=== PATIENT | female | born 1945 | race American Indian/Alaskan Native ===

== ENCOUNTER 2019-11-18 13:14 | Inpatient (IN) | payer MEDICARE ==
[2019-11-18] MEDS ORDERED: SODIUM CHLORIDE 0.9% 1000 ML 1,000 ML IV ONE (13:59)
[2019-11-18] MEDS ORDERED: KETOROLAC 30 MG/1 ML INJ IV ONE (13:59)
[2019-11-18] MEDS ORDERED: ONDANSETRON 4 MG/2 ML INJ IV ONE (13:59)
[2019-11-18 14:38] LABS: Basophils # (Auto) 0.1 K/mm3 (0.0-0.1); Basophils % (Auto) 0.5 % (0.0-1.8); Hematocrit 37.8 % (30.3-42.9); Hemoglobin 12.2 gm/dl (10.1-14.3); Lymphocytes # (Auto) 1.4 K/mm3 (1.2-5.4); Lymphocytes % (Auto) 9.5 % (13.4-35.0); Mean Corpuscular HGB Conc 32 % (30-34); Mean Corpuscular Volume 90 fl (79-97); Monocytes # (Auto) 1.3 K/mm3 (0.0-0.8); Monocytes % (Auto) 9.2 % (0.0-7.3); Platelet Count 195 K/mm3 (140-440); Red Blood Count 4.21 M/mm3 (3.65-5.03); Red Cell Distribution Width 13.8 % (13.2-15.2)
--- NOTE | 2019-11-18 15:27 | Cat Scan Report ---
CT head/brain wo con INDICATION / CLINICAL INFORMATION: 73 years Female; MAIN: headache AND ALL OVER BODY PAIN SINCE LAST NIGHT . TECHNIQUE: Routine CT head without contrast. All CT scans at this location are performed using CT dos e reduction for ALARA by means of automated exposure control. COMPARISON: None. FINDINGS: BRAIN / INTRACRANIAL CONTENTS: No acute hemorrhage, mass effect, midline shift, hydrocephalus, or acu te, large territorial infarct. Minimal cerebral atrophy. There are minimal areas of decreased attenuation in the white matter of the cerebral hemispheres. The se are nonspecific findings and may be related to microangiopathy (hypertension, diabetes, atheroscle rosis), given the patient's age. It might be difficult to evaluate for small areas of ischemia withou t diffusion imaging by MRI. CRANIOCERVICAL JUNCTION: No significant abnormality. ORBITS: No significant abnormality of visualized orbits. There may be scleral banding on the left. Pl ease clinically correlate. SINUSES / MASTOIDS: No significant abnormality the visualized paranasal sinuses or mastoid air cells. ADDITIONAL FINDINGS: No significant atherosclerotic disease appreciated. IMPRESSION: 1. No focal mass, hemorrhage, hydrocephalus, or acute, large territorial infarct. Signer Name: James Fernandez MD, III Signed: 11/18/2019 3:22 PM Workstation Name: [id number]
[2019-11-18] MEDS ORDERED: SODIUM CHLORIDE 0.9% IV ONE (16:03)
[2019-11-18] MEDS ORDERED: cefTRIAXone/NS 1 GM/50 ML 1 GM/50 ML BAG IV SCH (16:03)
[2019-11-18 16:07] LABS: Bilirubin,Urine NEG (Negative); Blood,Urine MOD (Negative); Color,Urine Yellow (Yellow); Mucus,Urine FEW /HPF; Urobilinogen,Urine < 2.0 mg/dL (<2.0)
--- NOTE | 2019-11-18 16:53 | Emergency Department Report ---
ED General Adult HPI - General Chief complaint: Urogenital-Female Stated complaint: HBP/HEADACHE/BODY PAIN Time Seen by Provider: 11/18/19 13:52 Source: family, EMS Mode of arrival: Stretcher Limitations: Altered Mental Status, Physical Limitation - History of Present Illness Initial comments: Patient is a 73-year-old F M[place] female who is presenting with altered mental status. Patient's daughter states that the patient was at home for the last 2 days lying on the floor in her own urine. Patient apparently has not walked since yesterday either. Patient is had some weakness and is complaining of pain all over. Patient was seen approximately a week ago for urinary tract infection and only took half of her medications. After the patient declined patient was taken to another hospital last night and was given some IV fluids but released with another prescription for antibiotics. Is unknown with the urinalysis showed at that time. Patient is presenting here complaining of left-sided headache and some left-sided neck pain. Patient also states she has some low back pain as well. Patient is no unable to give a proper timeline of the last several days. Severity scale (0 -10): 8 Quality: aching Consistency: constant - Related Data Allergies Allergy/AdvReac Type Severity Reaction Status Date / Time No Known Allergies Allergy Unverified 11/18/19 14:07 ED Review of Systems ROS: Stated complaint: HBP/HEADACHE/BODY PAIN Other details as noted in HPI Comment: All other systems reviewed and negative ED Past Medical Hx - Past Medical History Hx Hypertension: Yes Hx Diabetes: Yes Additional medical history: sciatica - Surgical History Additional Surgical History: eye, hysterectomy - Social History Smoking Status: Former Smoker Substance Use Type: Alcohol ED Physical Exam - General Limitations: Altered Mental Status, Physical Limitation General appearance: alert, in distress, other (On initial assessment patient is wrapped in multiple blankets stating that she hurts all over.) - Head Head exam: Present: atraumatic, normocephalic - Eye Eye exam: Present: normal appearance, PERRL, EOMI - ENT ENT exam: Present: mucous membranes moist - Neck Neck exam: Present: normal inspection, tenderness (left lateral neck). Absent: meningismus - Respiratory Respiratory exam: Present: normal lung sounds bilaterally. Absent: respiratory distress, wheezes, rales, rhonchi - Cardiovascular Cardiovascular Exam: Present: regular rate, normal rhythm, normal heart sounds. Absent: systolic murmur, diastolic murmur, rubs, gallop - GI/Abdominal GI/Abdominal exam: Present: soft, normal bowel sounds. Absent: distended, tenderness, guarding, rebound - Extremities Exam Extremities exam: Present: normal inspection - Back Exam Back exam: Present: normal inspection, paraspinal tenderness (lumbar) - Neurological Exam Neurological exam: Present: alert, oriented X3 - Psychiatric Psychiatric exam: Present: normal affect, normal mood - Skin Skin exam: Present: warm, dry, intact, normal color. Absent: rash ED Course Vital Signs 11/18/19 11/18/19 11/18/19 14:30 15:00 15:59 Temperature 97.8 F Pulse Rate 98 H 98 H 99 H Respiratory 26 H 21 26 H Rate Blood Pressure 156/76 160/91 158/70 [Left] O2 Sat by Pulse 95 96 95 Oximetry 11/18/19 16:02 Temperature Pulse Rate 99 H Respiratory 16 Rate Blood Pressure 136/70 [Left] O2 Sat by Pulse 93 Oximetry ED Medical Decision Making - Lab Data Result diagrams: 11/18/19 14:25 11/18/19 14:25 Lab Results 11/18/19 11/18/19 11/18/19 Range/Units 14:25 14:25 15:59 WBC 14.2 H (4.5-11.0) K/mm3 RBC 4.21 (3.65-5.03) M/mm3 Hgb 12.2 (10.1-14.3) gm/dl Hct 37.8 (30.3-42.9) % MCV 90 (79-97) fl MCH 29 (28-32) pg MCHC 32 (30-34) % RDW 13.8 (13.2-15.2) % Plt Count 195 (140-440) K/mm3 Lymph % (Auto) 9.5 L (13.4-35.0) % [place] % (Auto) 9.2 H (0.0-7.3) % Eos % (Auto) 0.0 (0.0-4.3) % Baso % (Auto) 0.5 (0.0-1.8) % Lymph # 1.4 (1.2-5.4) K/mm3 [place] # 1.3 H (0.0-0.8) K/mm3 Eos # 0.0 (0.0-0.4) K/mm3 Baso # 0.1 (0.0-0.1) K/mm3 Seg Neutrophils % 80.8 H (40.0-70.0) % Seg Neutrophils # 11.5 H (1.8-7.7) K/mm3 Sodium 132 L (137-145) mmol/L Potassium 5.4 H (3.6-5.0) mmol/L Chloride 94.4 L (98-107) mmol/L Carbon Dioxide 19 L (22-30) mmol/L Anion Gap 24 mmol/L BUN 11 (7-17) mg/dL Creatinine 1.0 (0.7-1.2) mg/dL Estimated GFR 55 ml/min BUN/Creatinine Ratio 11 % Glucose 348 H (65-100) mg/dL Lactic Acid (0.7-2.0) mmol/L Calcium 9.0 (8.4-10.2) mg/dL Urine Color Yellow (Yellow) Urine Turbidity Clear (Clear) Urine pH 5.0 (5.0-7.0) Ur Specific [place] 1.022 (1.003-1.030) Urine Protein 30 mg/dl (Negative) mg/dL Urine Glucose (UA) >=500 (Negative) mg/dL Urine Ketones 20 (Negative) mg/dL Urine Blood Mod (Negative) Urine Nitrite Neg (Negative) Urine Bilirubin Neg (Negative) Urine Urobilinogen < 2.0 (<2.0) mg/dL Ur Leukocyte Esterase Neg (Negative) Urine WBC (Auto) 3.0 (0.0-6.0) /HPF Urine RBC (Auto) 3.0 (0.0-6.0) /HPF U Epithel Cells (Auto) 1.0 (0-13.0) /HPF Urine Mucus Few /HPF 11/18/19 Range/Units 16:23 WBC (4.5-11.0) K/mm3 RBC (3.65-5.03) M/mm3 Hgb (10.1-14.3) gm/dl Hct (30.3-42.9) % MCV (79-97) fl MCH (28-32) pg MCHC (30-34) % RDW (13.2-15.2) % Plt Count (140-440) K/mm3 Lymph % (Auto) (13.4-35.0) % [place] % (Auto) (0.0-7.3) % Eos % (Auto) (0.0-4.3) % Baso % (Auto) (0.0-1.8) % Lymph # (1.2-5.4) K/mm3 [place] # (0.0-0.8) K/mm3 Eos # (0.0-0.4) K/mm3 Baso # (0.0-0.1) K/mm3 Seg Neutrophils % (40.0-70.0) % Seg Neutrophils # (1.8-7.7) K/mm3 Sodium (137-145) mmol/L Potassium (3.6-5.0) mmol/L Chloride (98-107) mmol/L Carbon Dioxide (22-30) mmol/L Anion Gap mmol/L BUN (7-17) mg/dL Creatinine (0.7-1.2) mg/dL Estimated GFR ml/min BUN/Creatinine Ratio % Glucose (65-100) mg/dL Lactic Acid 1.80 (0.7-2.0) mmol/L Calcium (8.4-10.2) mg/dL Urine Color (Yellow) Urine Turbidity (Clear) Urine pH (5.0-7.0) Ur Specific [place] (1.003-1.030) Urine Protein (Negative) mg/dL Urine Glucose (UA) (Negative) mg/dL Urine Ketones (Negative) mg/dL Urine Blood (Negative) Urine Nitrite (Negative) Urine Bilirubin (Negative) Urine Urobilinogen (<2.0) mg/dL Ur Leukocyte Esterase (Negative) Urine WBC (Auto) (0.0-6.0) /HPF Urine RBC (Auto) (0.0-6.0) /HPF U Epithel Cells (Auto) (0-13.0) /HPF Urine Mucus /HPF - Radiology Data CT head/brain wo con INDICATION / CLINICAL INFORMATION: 73 years Female; MAIN: headache AND ALL OVER BODY PAIN SINCE LAST NIGHT . TECHNIQUE: Routine CT head without contrast. All CT scans at this location are performed using CT dose reduction for ALARA by means of automated exposure control. COMPARISON: None. FINDINGS: BRAIN / INTRACRANIAL CONTENTS: No acute hemorrhage, mass effect, midline shift, hydrocephalus, or acute, large territorial infarct. Minimal cerebral atrophy. There are minimal areas of decreased attenuation in the white matter of the cerebral hemispheres. These are nonspecific findings and may be related to microangiopathy (hypertension, diabetes, atherosclerosis), given the patient's age. It might be difficult to evaluate for small areas of ischemia without diff usion imaging by MRI. CRANIOCERVICAL JUNCTION: No significant abnormality. ORBITS: No significant abnormality of visualized orbits. There may be scleral banding on the left. Please clinically correlate. SINUSES / MASTOIDS: No significant abnormality the visualized paranasal sinuses or mastoid air cells. ADDITIONAL FINDINGS: No significant atherosclerotic disease appreciated. IMPRESSION: 1. No focal mass, hemorrhage, hydrocephalus, or acute, large territorial infarct. Signer Name: James Fernandez MD, III Signed: 11/18/2019 2:22 PM Workstation Name: [id number] - Medical Decision Making Patient is a 73-year-old F [place] female who is presenting with some abnormal behavior for the last several days. Patient is recently been treated for UTI. There was assumption that the patient likely was encephalopathic from her UTI. Once the patient's white count returned patient sepsis protocol was initiated. The urine was the last thing to be collected. The urine actually was clear and not cloudy. There is very few WBCs or RBCs in the leuk esterase and nitrates were negative i.e. her urinary tract infection she had last week was improving. Patient does show evidence some dehydration. Patient is nonambulatory. Her pain was improved with Toradol she is no longer complaining of pain all over. There is a slight concern for rhabdomyolysis since the patient was lying on the floor overnight however the urine was not tea colored. CK has been ordered to rule rhabdomyolysis out completely. Because the patient is nonambulatory and having issues with dehydration patient will be admitted to the hospitalist service under observation status. Critical care attestation.: If time is entered above; I have spent that time in minutes in the direct care of this critically ill patient, excluding procedure time. ED Disposition Clinical Impression: Hyperkalemia, Hyponatremia, Dehydration, Chronic neuropathic pain, Hyperglycemia Altered mental state Qualifiers: Altered mental status type: unspecified Qualified Code(s): R41.82 - Altered mental status, unspecified Disposition: DC-09 OP ADMIT IP TO THIS HOSP Is pt being admited?: Yes Does the pt Need Aspirin: No Condition: Stable Time of Disposition: 17:00
[2019-11-18] MEDS ORDERED: SODIUM BICARB 8.4% 50 MEQ/50 ML SYRINGE IV ONE ×2 (16:59→20:12)
[2019-11-18] MEDS ORDERED: SODIUM CHLORIDE 0.9% 1000 ML 1,000 ML IV SCH (17:00)
--- NOTE | 2019-11-18 21:02 | History and Physical Report ---
History of Present Illness Date of examination: 11/18/19 Date of admission: 11/18/19 17:00 Chief complaint: Patient with AMS for 2days History of present illness: 73 y/o AAF with history of HTN and diabetes apparently doing well till 2 days ago was found on floor in urine.Patient was confused and altered during initial ED presentation.In the next one hour was back to baseline and coherent.Poorhistorian.Says she was taking care of herself till 2 days ago..Was treated for UTI inthe last one week.No dysuria or fever. Ary hernandez was taken to another hospital last night and was given some IV fluids but released with another prescription for antibiotics. Is unknown with the urinalysis showed at that time. Patient is presenting here complaining of left- sided headache and some left-sided neck pain. Patient also states she has some low back pain as well. Patient is not unable to give a proper timeline of the last several days. Past Medical History Hypertension: Yes Diabetes: Yes Additional medical history: sciatica Surgical History Additional Surgical History: eye, hysterectomy Social History Smoking Status: Former Smoker Substance Use Type: Alcohol Family History Htn Review of Systems ROS: Stated complaint: HBP/HEADACHE/BODY PAIN Other details as noted in HPI Comment: All other systems reviewed and negative Medications and Allergies Allergies Allergy/AdvReac Type Severity Reaction Status Date / Time No Known Allergies Allergy Unverified 11/18/19 14:07 Active Meds: Active Medications Ceftriaxone Sodium (Rocephin/Ns 1 Gm/50 Ml) 1 gm in 50 mls @ 100 mls/hr IV Q24HR KALINA; Protocol Stop: 11/20/19 10:29 Last Admin: 11/18/19 17:00 Dose: 100 mls/hr Documented by: Sodium Chloride (Nacl 0.9% 1000 Ml) 1,000 mls @ 125 mls/hr IV DIRECT KALINA Exam - Constitutional Vitals: Temp Pulse Resp BP Pulse Ox 97.8 F 104 H 18 140/90 95 11/18/19 15:59 11/18/19 20:45 11/18/19 20:45 11/18/19 20:45 11/18/19 20:45 General appearance: Present: no acute distress, well-nourished - EENT Eyes: Present: PERRL ENT: hearing intact, clear oral mucosa - Neck Neck: Present: supple, normal ROM - Respiratory Respiratory effort: normal Respiratory: bilateral: CTA - Cardiovascular Heart rate: 78 Rhythm: regular Heart Sounds: Present: S1 & S2. Absent: rub, click - Extremities Extremities: no ischemia, pulses intact, pulses symmetrical, No edema Peripheral Pulses: within normal limits - Abdominal General gastrointestinal: Present: soft, non-tender, non-distended, normal bowel sounds Female genitourinary: Present: normal - Rectal Rectal Exam: deferred - Integumentary Integumentary: Present: clear, warm, dry - Musculoskeletal Musculoskeletal: gait normal, strength equal bilaterally - Psychiatric Psychiatric: appropriate mood/affect, intact judgment & insight - Neurologic Neurologic: CNII-XII intact, moves all extremities - Allied Health Allied health notes reviewed: nursing, case management Results - Labs CBC & Chem 7: 11/19/19 05:08 11/18/19 14:25 Labs: Laboratory Last Values WBC 14.2 K/mm3 (4.5-11.0) H 11/18/19 14:25 RBC 4.21 M/mm3 (3.65-5.03) 11/18/19 14:25 Hgb 12.2 gm/dl (10.1-14.3) 11/18/19 14:25 Hct 37.8 % (30.3-42.9) 11/18/19 14:25 MCV 90 fl (79-97) 11/18/19 14:25 MCH 29 pg (28-32) 11/18/19 14:25 MCHC 32 % (30-34) 11/18/19 14:25 RDW 13.8 % (13.2-15.2) 11/18/19 14:25 Plt Count 195 K/mm3 (140-440) 11/18/19 14:25 Lymph % (Auto) 9.5 % (13.4-35.0) L 11/18/19 14:25 [place] % (Auto) 9.2 % (0.0-7.3) H 11/18/19 14:25 Eos % (Auto) 0.0 % (0.0-4.3) 11/18/19 14:25 Baso % (Auto) 0.5 % (0.0-1.8) 11/18/19 14:25 Lymph # 1.4 K/mm3 (1.2-5.4) 11/18/19 14:25 [place] # 1.3 K/mm3 (0.0-0.8) H 11/18/19 14:25 Eos # 0.0 K/mm3 (0.0-0.4) 11/18/19 14:25 Baso # 0.1 K/mm3 (0.0-0.1) 11/18/19 14:25 Seg Neutrophils % 80.8 % (40.0-70.0) H 11/18/19 14:25 Seg Neutrophils # 11.5 K/mm3 (1.8-7.7) H 11/18/19 14:25 Sodium 132 mmol/L (137-145) L 11/18/19 14:25 Potassium 5.4 mmol/L (3.6-5.0) H 11/18/19 14:25 Chloride 94.4 mmol/L (98-107) L 11/18/19 14:25 Carbon Dioxide 19 mmol/L (22-30) L 11/18/19 14:25 Anion Gap 24 mmol/L 11/18/19 14:25 BUN 11 mg/dL (7-17) 11/18/19 14:25 Creatinine 1.0 mg/dL (0.7-1.2) 11/18/19 14:25 Estimated GFR 55 ml/min 11/18/19 14:25 BUN/Creatinine Ratio 11 % 11/18/19 14:25 Glucose 348 mg/dL (65-100) H 11/18/19 14:25 Lactic Acid 1.80 mmol/L (0.7-2.0) 11/18/19 18:57 Calcium 9.0 mg/dL (8.4-10.2) 11/18/19 14:25 Total Creatine Kinase 2231 units/L (30-135) H 11/18/19 17:02 Urine Color Yellow (Yellow) 11/18/19 15:59 Urine Turbidity Clear (Clear) 11/18/19 15:59 Urine pH 5.0 (5.0-7.0) 11/18/19 15:59 Ur Specific [place] 1.022 (1.003-1.030) 11/18/19 15:59 Urine Protein 30 mg/dl mg/dL (Negative) 11/18/19 15:59 Urine Glucose (UA) >=500 mg/dL (Negative) 11/18/19 15:59 Urine Ketones 20 mg/dL (Negative) 11/18/19 15:59 Urine Blood Mod (Negative) 11/18/19 15:59 Urine Nitrite Neg (Negative) 11/18/19 15:59 Urine Bilirubin Neg (Negative) 11/18/19 15:59 Urine Urobilinogen < 2.0 mg/dL (<2.0) 11/18/19 15:59 Ur Leukocyte Esterase Neg (Negative) 11/18/19 15:59 Urine WBC (Auto) 3.0 /HPF (0.0-6.0) 11/18/19 15:59 Urine RBC (Auto) 3.0 /HPF (0.0-6.0) 11/18/19 15:59 U Epithel Cells (Auto) 1.0 /HPF (0-13.0) 11/18/19 15:59 Urine Mucus Few /HPF 11/18/19 15:59 Short CBC 11/18/19 11/19/19 Range/Units 14:25 05:08 WBC 14.2 H 11.6 H (4.5-11.0) K/mm3 Hgb 12.2 10.6 (10.1-14.3) gm/dl Hct 37.8 32.4 (30.3-42.9) % Plt Count 195 208 (140-440) K/mm3 BMP 11/18/19 14:25 Sodium 132 L Potassium 5.4 H Chloride 94.4 L Carbon Dioxide 19 L BUN 11 Creatinine 1.0 Glucose 348 H Calcium 9.0 Cardiac Enzymes 11/18/19 Range/Units 17:02 Total Creatine Kinase 2231 H (30-135) units/L Urine 11/18/19 Range/Units 15:59 Urine Color Yellow (Yellow) Urine pH 5.0 (5.0-7.0) Ur Specific [place] 1.022 (1.003-1.030) Urine Protein 30 mg/dl (Negative) mg/dL Urine Glucose (UA) >=500 (Negative) mg/dL - Imaging and Cardiology EKG: report reviewed CT Scan - head: report reviewed (NAF) Assessment and Plan Advance Directives: Yes (Ful code) VTE prophylaxis?: Chemical Plan of care discussed with patient/family: Yes - Patient Problems (1) Acute encephalopathy Current Visit: Yes Status: Acute Plan to address problem: Resolving No signs of Infection U/A negative Hypoglycemia episode Near baseline mentation IV Fluids for now Empiric IV Rocephin (2) Rhabdomyolysis Current Visit: Yes Status: Acute Qualifiers: Encounter type: initial encounter Plan to address problem: Patient was lying on floor for some time IV fluids for (3) IDDM (insulin dependent diabetes mellitus) Current Visit: Yes Status: Chronic Plan to address problem: Uncontrolled A1c 9.7 Novolog mix initiated Accucheks and coverage (4) HTN (hypertension) Current Visit: Yes Status: Chronic Qualifiers: Hypertension type: essential hypertension Qualified Code(s): I10 - Essential (primary) hypertension Plan to address problem: Cont antihypertensives (5) Hyperkalemia Current Visit: Yes Status: Acute Plan to address problem: Treated (6) DVT prophylaxis Current Visit: Yes Status: Acute Plan to address problem: On Heparin and GI prophylaxis
[2019-11-18] MEDS ORDERED: ONDANSETRON 4 MG/2 ML INJ IV PRN (21:03)
[2019-11-18] MEDS: FAMOTIDINE 20 MG/2 ML INJ IV SCH (22:27)
[2019-11-19] MEDS: SODIUM CHLORIDE 0.9% 1000 ML 1,000 ML IV SCH ×3 (04:36→19:39)
[2019-11-19 06:05] LABS: Basophils # (Auto) 0.1 K/mm3 (0.0-0.1); Basophils % (Auto) 0.6 % (0.0-1.8); Eosinophils # (Auto) 0.1 K/mm3 (0.0-0.4); Eosinophils % (Auto) 0.6 % (0.0-4.3); Hematocrit 32.4 % (30.3-42.9); Hemoglobin 10.6 gm/dl (10.1-14.3); Lymphocytes # (Auto) 1.8 K/mm3 (1.2-5.4); Lymphocytes % (Auto) 15.2 % (13.4-35.0); Mean Corpuscular HGB Conc 33 % (30-34); Mean Corpuscular Volume 89 fl (79-97); Monocytes # (Auto) 0.8 K/mm3 (0.0-0.8); Monocytes % (Auto) 7.2 % (0.0-7.3); Platelet Count 208 K/mm3 (140-440); Red Blood Count 3.62 M/mm3 (3.65-5.03); Red Cell Distribution Width 13.6 % (13.2-15.2)
[2019-11-19 07:13] LABS: Alanine Aminotransferase 13 units/L (7-56); Albumin 3.1 g/dL (3.9-5); BUN/Creatinine Ratio 14; Blood Urea Nitrogen 13 mg/dL (7-17); Calcium 8.4 mg/dL (8.4-10.2); Hemolysis Index 16
--- NOTE | 2019-11-19 09:05 | Progress Note ---
Assessment and Plan Assessment and plan: 73 y/o AAF with history of HTN and diabetes apparently doing well till 2 days ago was found on floor in urine.Patient was confused and altered during initial ED presentation.In the next one hour was back to baseline and coherent.Poor historian.Says she was taking care of herself till 2 days ago..Was treated for UTI in the last one week. No dysuria or fever. Patient was taken to another hospital last night and was given some IV fluids but released with another prescription for antibiotics. Is unknown with the urinalysis showed at that time. Patient is presenting here complaining of left- sided headache and some left-sided neck pain. Patient also states she has some low back pain as well. Patient is not unable to give a proper timeline of the last several days. Per daughter patient was found on the floor at home in pool of urine and altered Patient was active with complete of ADL up to a few days ago She came off a relationship in the Last few months and may be depressed, the daughter is also requesting Rebecca-psych eval She has been complaining of generalized body pain Her blood sugar has been persistently elevated she was recently treated in [facility] ED for ACUTE PYELONEPHRITIS AND NON COMPLIANCE WITH MEDICATIONS ALSO LEUKOCYTOSIS. She had presented there with headache and generalized body aches and leg pain On evaluation today, she is in no acute distress. Mental status is improved but she does not remember much about the last 2 days and does not know the names of medicines she takes. she is very lethargic and unable to move without assistance She has some edema with the leg. she has persistent Tachycardia She was to have an appointment with Carola Riggs MD neurologist outpatient prior to being readmitted. (1) Acute encephalopathy Current Visit: Yes Status: Acute Plan to address problem: Resolving Will obtain MRI OF HEAD, Neurology consulted PT OT PATIENT IS A HIGH FALL RISK- SHE HAD A FALL 2 MONTHS AGO NEUROLOGY CONSULT ECHO FOR THE HEART CONSIDERING ALL THE PAIN POINTS, FIBROMYALGIA IS IN THE DIFFERENTIALS, will start on Cymbalta CONSIDER LUMBER PUNCTURE CONSIDERING AMENTIA VS CONTUSION U/A negative Hypoglycemia episode Near baseline mentation IV Fluids for now Empiric IV Rocephin (2) Rhabdomyolysis Current Visit: Yes Status: Acute Qualifiers: Encounter type: initial encounter Plan to address problem: Patient was lying on floor for some time IV fluids for Rhabdomyolysis (3) IDDM (insulin dependent diabetes mellitus) Current Visit: Yes Status: Chronic Plan to address problem: Uncontrolled A1c 9.7 Novolog mix initiated Accucheks and coverage (4) HTN (hypertension) Current Visit: Yes Status: Chronic Qualifiers: Hypertension type: essential hypertension Qualified Code(s): I10 - Essential (primary) hypertension Plan to address problem: Cont antihypertensives (5) Hyperkalemia Current Visit: Yes Status: Acute Plan to address problem: Treated (6) DVT prophylaxis Current Visit: Yes Status: Acute Plan to address problem: On Heparin and GI prophylaxis History Interval history: Patient seen and examined, remains with Delirium and Periods of clarity. She has generalized weakness and not moving despite normally being able to walk Hospitalist Physical - Constitutional Vitals: Temp Pulse Resp BP Pulse Ox 100.3 F H 101 H 18 165/77 92 11/19/19 07:22 11/19/19 07:22 11/19/19 07:22 11/19/19 07:22 11/19/19 07:22 General appearance: Present: mild distress, well-nourished, obese, other (lethargic) - EENT Eyes: Present: PERRL, EOM intact. Absent: scleral icterus, conjunctival injection ENT: hearing intact, clear oral mucosa, dentition normal - Neck Neck: Present: supple - Respiratory Respiratory effort: normal Respiratory: bilateral: CTA - Cardiovascular Rhythm: regular Heart Sounds: Present: S1 & S2. Absent: systolic murmur, diastolic murmur - Extremities Extremities: no ischemia, pulses intact, pulses symmetrical, normal temperature, normal color, Full ROM Extremity abnormal: edema (trace bilatral lower ext edema) Peripheral Pulses: within normal limits - Abdominal General gastrointestinal: soft, non-tender, non-distended, normal bowel sounds - Integumentary Integumentary: Present: clear, warm, dry. Absent: erythema - Psychiatric Psychiatric: appropriate mood/affect, other (intermittent periods of confusion) - Allied Health Allied health notes reviewed: nursing Results - Labs CBC & Chem 7: 11/19/19 05:08 11/19/19 05:08 Labs: Laboratory Last Values WBC 11.6 K/mm3 (4.5-11.0) H 11/19/19 05:08 RBC 3.62 M/mm3 (3.65-5.03) L 11/19/19 05:08 Hgb 10.6 gm/dl (10.1-14.3) 11/19/19 05:08 Hct 32.4 % (30.3-42.9) 11/19/19 05:08 MCV 89 fl (79-97) 11/19/19 05:08 MCH 29 pg (28-32) 11/19/19 05:08 MCHC 33 % (30-34) 11/19/19 05:08 RDW 13.6 % (13.2-15.2) 11/19/19 05:08 Plt Count 208 K/mm3 (140-440) 11/19/19 05:08 Lymph % (Auto) 15.2 % (13.4-35.0) 11/19/19 05:08 Frontier % (Auto) 7.2 % (0.0-7.3) 11/19/19 05:08 Eos % (Auto) 0.6 % (0.0-4.3) 11/19/19 05:08 Baso % (Auto) 0.6 % (0.0-1.8) 11/19/19 05:08 Lymph # 1.8 K/mm3 (1.2-5.4) 11/19/19 05:08 Frontier # 0.8 K/mm3 (0.0-0.8) 11/19/19 05:08 Eos # 0.1 K/mm3 (0.0-0.4) 11/19/19 05:08 Baso # 0.1 K/mm3 (0.0-0.1) 11/19/19 05:08 Seg Neutrophils % 76.4 % (40.0-70.0) H 11/19/19 05:08 Seg Neutrophils # 8.8 K/mm3 (1.8-7.7) H 11/19/19 05:08 Sodium 140 mmol/L (137-145) D 11/19/19 05:08 Potassium 4.4 mmol/L (3.6-5.0) 11/19/19 05:08 Chloride 101.7 mmol/L (98-107) 11/19/19 05:08 Carbon Dioxide 24 mmol/L (22-30) 11/19/19 05:08 Anion Gap 19 mmol/L 11/19/19 05:08 BUN 13 mg/dL (7-17) 11/19/19 05:08 Creatinine 0.9 mg/dL (0.7-1.2) 11/19/19 05:08 Estimated GFR > 60 ml/min 11/19/19 05:08 BUN/Creatinine Ratio 14 % 11/19/19 05:08 Glucose 238 mg/dL (65-100) H 11/19/19 05:08 POC Glucose 255 (70-105) H 11/19/19 08:21 Hemoglobin A1c 9.7 % (4-6) H 11/18/19 14:25 Lactic Acid 1.80 mmol/L (0.7-2.0) 11/18/19 18:57 Calcium 8.4 mg/dL (8.4-10.2) 11/19/19 05:08 Total Bilirubin 0.30 mg/dL (0.1-1.2) 11/19/19 05:08 AST 22 units/L (5-40) 11/19/19 05:08 ALT 13 units/L (7-56) 11/19/19 05:08 Alkaline Phosphatase 69 units/L (35-129) 11/19/19 05:08 Total Creatine Kinase 2231 units/L (30-135) H 11/18/19 17:02 Total Protein 7.1 g/dL (6.3-8.2) 11/19/19 05:08 Albumin 3.1 g/dL (3.9-5) L 11/19/19 05:08 Albumin/Globulin Ratio 0.8 % 11/19/19 05:08 Urine Color Yellow (Yellow) 11/18/19 15:59 Urine Turbidity Clear (Clear) 11/18/19 15:59 Urine pH 5.0 (5.0-7.0) 11/18/19 15:59 Ur Specific [place] 1.022 (1.003-1.030) 11/18/19 15:59 Urine Protein 30 mg/dl mg/dL (Negative) 11/18/19 15:59 Urine Glucose (UA) >=500 mg/dL (Negative) 11/18/19 15:59 Urine Ketones 20 mg/dL (Negative) 11/18/19 15:59 Urine Blood Mod (Negative) 11/18/19 15:59 Urine Nitrite Neg (Negative) 11/18/19 15:59 Urine Bilirubin Neg (Negative) 11/18/19 15:59 Urine Urobilinogen < 2.0 mg/dL (<2.0) 11/18/19 15:59 Ur Leukocyte Esterase Neg (Negative) 11/18/19 15:59 Urine WBC (Auto) 3.0 /HPF (0.0-6.0) 11/18/19 15:59 Urine RBC (Auto) 3.0 /HPF (0.0-6.0) 11/18/19 15:59 U Epithel Cells (Auto) 1.0 /HPF (0-13.0) 11/18/19 15:59 Urine Mucus Few /HPF 11/18/19 15:59 Active Medications - Current Medications Current Medications: Generic Name Dose Route Start Last Admin Trade Name Freq PRN Reason Stop Dose Admin Acetaminophen 650 mg 11/18/19 21:03 Tylenol PO Q4H PRN Pain MILD(1-3)/Fever >100.5/ARVIZU Famotidine 20 mg 11/18/19 22:00 11/18/19 22:27 Pepcid IV 20 mg BID KALINA Administration Sodium Chloride 1,000 mls @ 75 mls/hr 11/18/19 21:15 11/19/19 04:36 Nacl 0.9% 1000 Ml IV 75 mls/hr DIRECT KALINA Administration Ceftriaxone Sodium 2 gm in 100 mls @ 200 mls/hr 11/19/19 10:00 Rocephin/Ns 2 Gm/100 Ml IV Q24HR KALINA Protocol Insulin Human Isoph/Insulin Regular 15 unit 11/19/19 09:00 Humulin 70/30 SUB-Q BIDDIAB KALINA Ondansetron HCl 4 mg 11/18/19 21:03 Zofran IV Q8H PRN Nausea And Vomiting Oxycodone/Acetaminophen 1 tab 11/18/19 21:03 Percocet 5/325 PO Q6H PRN Pain, Moderate (4-6) Sodium Chloride 10 ml 11/18/19 22:00 11/18/19 21:39 Sodium Chloride Flush Syringe 10 Ml IV 10 ml BID KALINA Administration Sodium Chloride 10 ml 11/18/19 21:03 Sodium Chloride Flush Syringe 10 Ml IV PRN PRN LINE FLUSH
[2019-11-19] MEDS ORDERED: DEXTROSE 50% IN WATER (25GM) 50 ML SYRINGE IV PRN (09:07)
[2019-11-19] MEDS: oxyCODONE /ACETAMINOPHEN 5-325MG TAB PO PRN ×2 (09:13→22:29)
[2019-11-19] MEDS: FAMOTIDINE 20 MG/2 ML INJ IV SCH ×2 (09:13→22:28)
[2019-11-19] MEDS: INSULIN NPH/REGULAR 70/30 INJ SUB-Q SCH ×2 (10:14→17:07)
[2019-11-19] MEDS: DULoxetine 20 MG CAP PO SCH (10:14)
[2019-11-19] MEDS: cefTRIAXone/NS 2 GM/100 ML 2 GM/100 ML BAG IV SCH (10:15)
[2019-11-19] MEDS: LISINOPRIL 20 MG TAB PO SCH (10:15)
[2019-11-19] MEDS: INSULIN LISPRO 100 UNIT/ML SUB-Q SCH ×3 (11:51→22:46)
[2019-11-19 12:09] LABS: Chol/HDL Ratio 4.04 %
--- NOTE | 2019-11-19 13:01 | Progress Note ---
Subjective Date of service: 10/22/19 Interval history: patient seen and she is very disoriented and confused appears to have aleteres mental state rule out stroke dementia full work up orered no focal neuro signs at this point. Objective - Vital Sign Vital Signs - 12hr 11/19/19 11/19/19 11/19/19 02:21 07:22 10:00 Temperature 99.5 F 100.3 F H Pulse Rate 91 H 101 H 101 H Respiratory 20 18 Rate Blood Pressure 165/76 165/77 O2 Sat by Pulse 96 92 Oximetry - Laboratory Findings CBC and BMP: 11/19/19 05:08 11/19/19 05:08 Abnormal Lab Findings: Abnormal Labs 11/18/19 11/18/19 11/18/19 14:25 14:25 14:25 WBC 14.2 H RBC Lymph % (Auto) 9.5 L Mcdowell % (Auto) 9.2 H Mcdowell # 1.3 H Seg Neutrophils % 80.8 H Seg Neutrophils # 11.5 H Sodium 132 L Potassium 5.4 H Chloride 94.4 L Carbon Dioxide 19 L Glucose 348 H POC Glucose Hemoglobin A1c 9.7 H Total Creatine Kinase Albumin 11/18/19 11/19/19 11/19/19 17:02 05:08 05:08 WBC 11.6 H RBC 3.62 L Lymph % (Auto) Mcdowell % (Auto) Mcdowell # Seg Neutrophils % 76.4 H Seg Neutrophils # 8.8 H Sodium Potassium Chloride Carbon Dioxide Glucose 238 H POC Glucose Hemoglobin A1c Total Creatine Kinase 2231 H Albumin 3.1 L 11/19/19 11/19/19 11/19/19 08:21 09:37 11:20 WBC RBC Lymph % (Auto) Mcdowell % (Auto) Mcdowell # Seg Neutrophils % Seg Neutrophils # Sodium Potassium Chloride Carbon Dioxide Glucose POC Glucose 255 H 261 H Hemoglobin A1c Total Creatine Kinase 1249 H Albumin
[2019-11-19] MEDS: GABAPENTIN 400 MG CAP PO SCH ×2 (14:33→22:28)
[2019-11-20] MEDS: oxyCODONE /ACETAMINOPHEN 5-325MG TAB PO PRN (04:03)
[2019-11-20 04:10] LABS: Hematocrit 32.3 % (30.3-42.9); Hemoglobin 10.6 gm/dl (10.1-14.3); Mean Corpuscular HGB Conc 33 % (30-34); Mean Corpuscular Volume 90 fl (79-97); Platelet Count 219 K/mm3 (140-440); Red Cell Distribution Width 13.6 % (13.2-15.2)
[2019-11-20 04:29] LABS: Albumin 2.5 g/dL (3.9-5); BUN/Creatinine Ratio 13; Blood Urea Nitrogen 9 mg/dL (7-17); Calcium 8.2 mg/dL (8.4-10.2); Hemolysis Index 128
[2019-11-20 04:59] LABS: Alanine Aminotransferase 16 units/L (7-56)
[2019-11-20] MEDS: INSULIN NPH/REGULAR 70/30 INJ SUB-Q SCH ×2 (08:30→18:19)
[2019-11-20] MEDS: INSULIN LISPRO 100 UNIT/ML SUB-Q SCH ×4 (08:30→22:42)
[2019-11-20] MEDS: FAMOTIDINE 20 MG/2 ML INJ IV SCH ×3 (09:28→21:16)
[2019-11-20] MEDS: GABAPENTIN 400 MG CAP PO SCH ×3 (09:28→20:20)
[2019-11-20] MEDS: DULoxetine 20 MG CAP PO SCH (09:28)
[2019-11-20] MEDS: cefTRIAXone/NS 2 GM/100 ML 2 GM/100 ML BAG IV SCH (09:28)
[2019-11-20] MEDS: LISINOPRIL 20 MG TAB PO SCH (09:28)
--- NOTE | 2019-11-20 09:40 | Progress Note ---
Subjective Date of service: 11/20/19 Interval history: spoke to Dr. Valle this am and went over her CT which shows atrophy suspect delirium vs dementia not stroke paln MRI thursday Objective - Vital Sign Vital Signs - 12hr 11/19/19 11/19/19 11/19/19 22:25 22:29 23:29 Temperature Pulse Rate Respiratory 20 20 Rate Respiratory 20 Rate [Neck] Blood Pressure O2 Sat by Pulse Oximetry 11/20/19 11/20/19 11/20/19 02:12 03:07 04:03 Temperature 97.7 F Pulse Rate 81 Respiratory 22 20 Rate Respiratory Rate [Neck] Blood Pressure 130/77 O2 Sat by Pulse 97 Oximetry 11/20/19 11/20/19 05:03 07:14 Temperature 98.1 F Pulse Rate 83 Respiratory 20 20 Rate Respiratory Rate [Neck] Blood Pressure 174/89 O2 Sat by Pulse 96 Oximetry - Laboratory Findings CBC and BMP: 11/20/19 03:25 11/20/19 03:25 Abnormal Lab Findings: Abnormal Labs 11/18/19 11/18/19 11/18/19 14:25 14:25 14:25 WBC 14.2 H RBC Lymph % (Auto) 9.5 L [place] % (Auto) 9.2 H [place] # 1.3 H Seg Neutrophils % 80.8 H Seg Neutrophils # 11.5 H Sodium 132 L Potassium 5.4 H Chloride 94.4 L Carbon Dioxide 19 L Glucose 348 H POC Glucose Hemoglobin A1c 9.7 H Calcium Total Creatine Kinase Albumin 11/18/19 11/19/19 11/19/19 17:02 05:08 05:08 WBC 11.6 H RBC 3.62 L Lymph % (Auto) [place] % (Auto) [place] # Seg Neutrophils % 76.4 H Seg Neutrophils # 8.8 H Sodium Potassium Chloride Carbon Dioxide Glucose 238 H POC Glucose Hemoglobin A1c Calcium Total Creatine Kinase 2231 H Albumin 3.1 L 11/19/19 11/19/19 11/19/19 08:21 09:37 11:20 WBC RBC Lymph % (Auto) [place] % (Auto) [place] # Seg Neutrophils % Seg Neutrophils # Sodium Potassium Chloride Carbon Dioxide Glucose POC Glucose 255 H 261 H Hemoglobin A1c Calcium Total Creatine Kinase 1249 H Albumin 11/19/19 11/19/19 11/20/19 16:41 21:44 03:25 WBC RBC 3.60 L Lymph % (Auto) [place] % (Auto) [place] # Seg Neutrophils % Seg Neutrophils # Sodium Potassium Chloride Carbon Dioxide Glucose POC Glucose 172 H 179 H Hemoglobin A1c Calcium Total Creatine Kinase Albumin 11/20/19 11/20/19 03:25 07:28 WBC RBC Lymph % (Auto) [place] % (Auto) [place] # Seg Neutrophils % Seg Neutrophils # Sodium 135 L Potassium Chloride Carbon Dioxide Glucose POC Glucose 160 H Hemoglobin A1c Calcium 8.2 L Total Creatine Kinase Albumin 2.5 L
--- NOTE | 2019-11-20 12:10 | Cat Scan Report ---
CT CERVICAL SPINE: 11/20/2019 INDICATION / CLINICAL INFORMATION: radiculopathy. Right-sided pain COMPARISON: None available. FINDINGS: CT images of the cervical spine were obtained. Images are evaluated in the axial, coronal, and sagitt al planes. There is no evidence of acute abnormality. There is a left convex scoliosis of the spine centered at the cervicothoracic junction. Disc space narrowing is present at all levels, associated with disc bulging at all levels. There is e vidence of foraminal narrowing, right greater than left, at the C4-5, C5-6, and C6-7 levels. Vertebral body height is well preserved. There is no evidence of fracture. LEVEL BY LEVEL ANALYSIS: . CRANIOCERVICAL JUNCTION: Unremarkable. PARASPINAL STRUCTURES: Unremarkable. IMPRESSION: Degenerative disc and facet changes. Mild scoliosis. No evidence of acute abnormality. Subtle abnormalities of neural foramina and spinal canal may be better assessed with the use of CT my elography or MRI. All CT scans at this location are performed using dose reduction to ALARA by means of automated expos ure control. Signer Name: Vasyl Max MD Signed: 11/20/2019 12:05 PM Workstation Name: [id number]
--- NOTE | 2019-11-20 14:14 | Consultation ---
History of Present Illness - Reason for Consult Consult date: 11/20/19 Reason for consult: psychiatric assessment - Chief Complaint Chief complaint: Patient with AMS for 2days - History of Present Psychiatric Illness Ms. Oro is a 73-year-old -British female the patient is in bed alert oriented x2 patient reason oriented to place. The patient is dressed appropriately for the occasion she is able to make her needs known she appears her age. She maintains intermittent eye contact. The patient stated that she has a history of depression but has never taken medication and does not want medication, she reports that her depression is under control. The patient denies suicidal or homicidal ideation she contracts for safety. She reports that she is sleeping okay and her eating habits are good. The patient denies visual or auditory hallucinations. The patient refused medication at this and states, " I am doing well". PAST PSYCHIATRIC HISTORY: Diagnoses: Depression Suicide attempts or Self-harm behavior: Denies Prior psychiatric hospitalizations: Denies Substance Abuse history: Denies Previous psychiatric medications tried: None Outpatient treatment: PAST MEDICAL HISTORY: Family Psychiatric History None reported or documented SOCIAL HISTORY Marital Status: Living Arrangements: Self Employment Status: Retired Access to guns/weapons: None Education: 12 History of Abuse: Denies Legal History: denies ROS: Constitutional: Negative for weight loss ENT: Negative for stridor Respiratory: Negative for cough or hemoptysis All other systems reviewed and are negative MENTAL STATUS General Appearance and Behavior: age appropriate, limited eye contact, cooperative with questioning and polite Cooperation: Cooperative Psychomotor Behavior: within normal limits Mood: OK Affect and affective range: Congruent with stated mood Thought Process: Fluent/Logical and Goal-directed Thought Content: Within reality Speech: Normal volume and Regular rate and rhythm Intellectual Functioning Average Suicidal Ideation: Denies SI Homicidal Ideation: Denies HI Impulse Control: intact Insight and Judgment: normal insight and judgment Memory: Normal Attention: Normal Orientation: alert and oriented RECOMMENDATIONS MEDICATIONS: Risks, benefits and alternatives of medications discussed with the patient, questions answered and consent obtained from patient. PSYCHOTHERAPY: Supportive psychotherapy provided MEDICAL: Per primary team DELIRIUM PRECAUTIONS: Please re-orient patient frequently, keep lights on during the day, and minimize benzodiazepines and opiates as these medications could worsen patient's confusion. 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: Per primary team; no indication for acute inpatient psychiatric hospitalization at this time, LEGAL STATUS: FOLLOW-UP: sign off Medications and Allergies Allergies Allergy/AdvReac Type Severity Reaction Status Date / Time No Known Allergies Allergy Unverified 11/18/19 14:07 Home Medications Medication Instructions Recorded Confirmed Last Taken Type Bromfenac Sodium [Prolensa] 1 drop OD DAILY 11/19/19 11/19/19 Unknown History Cyclobenzaprine [Flexeril] 10 mg PO BID PRN 11/19/19 11/19/19 Unknown History Difluprednate [Durezol 0.05%] 1 drop OU DAILY 11/19/19 11/19/19 Unknown History Dorzolamide/Timolol(Nf) 2-0.5% 1 drops OP BID 11/19/19 11/19/19 Unknown History [Cosopt (Nf)] Ibuprofen [Motrin] 800 mg PO Q8HR PRN 11/19/19 11/19/19 Unknown History Latanoprostene Bunod [Vyzulta] 1 drop OP HS 11/19/19 11/19/19 Unknown History Multivitamin [Multiple Vitamins] 1 each PO DAILY 11/19/19 11/19/19 Unknown History Netarsudil Mesylate [Rhopressa] 1 drop OS HS 11/19/19 11/19/19 Unknown History lisinopriL [Zestril] 20 mg PO QDAY 11/19/19 11/19/19 11/19/19 10:00 History metFORMIN [Glucophage] 500 mg PO BID 11/19/19 11/19/19 Unknown History traMADoL [Ultram] 50 mg PO Q6HR PRN 11/19/19 11/19/19 Unknown History Active Meds: Active Medications Acetaminophen (Tylenol) 650 mg PO Q4H PRN PRN Reason: Pain MILD(1-3)/Fever >100.5/ARVIZU Dextrose (D50w (25gm) Syringe) 50 ml IV Q30MIN PRN; Protocol PRN Reason: Hypoglycemia Duloxetine HCl (Cymbalta) 20 mg PO QDAY [facility] Last Admin: 11/20/19 09:28 Dose: 20 mg Documented by: Famotidine (Pepcid) 20 mg IV BID [facility] Last Admin: 11/20/19 09:28 Dose: 20 mg Documented by: Gabapentin (Gabapentin) 400 mg PO TID [facility] Last Admin: 11/20/19 13:05 Dose: 400 mg Documented by: Sodium Chloride (Nacl 0.9% 1000 Ml) 1,000 mls @ 75 mls/hr IV DIRECT [facility] Last Admin: 11/19/19 19:39 Dose: 75 mls/hr Documented by: Ceftriaxone Sodium (Rocephin/Ns 2 Gm/100 Ml) 2 gm in 100 mls @ 200 mls/hr IV Q24HR [facility]; Protocol Last Admin: 11/20/19 09:28 Dose: 200 mls/hr Documented by: Insulin Human Isoph/Insulin Regular (Humulin 70/30) 15 unit SUB-Q BIDDIAB [facility] Last Admin: 11/20/19 08:30 Dose: 15 unit Documented by: Insulin Human Lispro (Humalog) 0 unit SUB-Q ACHS [facility]; Protocol Last Admin: 11/20/19 13:05 Dose: 4 unit Documented by: Lisinopril (Zestril) 20 mg PO QDAY [facility] Last Admin: 11/20/19 09:28 Dose: 20 mg Documented by: Ondansetron HCl (Zofran) 4 mg IV Q8H PRN PRN Reason: Nausea And Vomiting Oxycodone/Acetaminophen (Percocet 5/325) 1 tab PO Q6H PRN PRN Reason: Pain, Moderate (4-6) Last Admin: 11/20/19 04:03 Dose: 1 tab Documented by: Sodium Chloride (Sodium Chloride Flush Syringe 10 Ml) 10 ml IV BID [facility] Last Admin: 11/20/19 09:29 Dose: 10 ml Documented by: Sodium Chloride (Sodium Chloride Flush Syringe 10 Ml) 10 ml IV PRN PRN PRN Reason: LINE FLUSH Mental Status Exam - Vital signs Last Vital Signs Temp 100.2 F H 11/20/19 12:45 Pulse 95 H 11/20/19 12:45 Resp 20 11/20/19 12:45 BP 162/132 11/20/19 12:45 Pulse Ox 96 11/20/19 12:45 Results Result Diagrams: 11/20/19 03:25 11/20/19 03:25 Abnormal lab results 11/19/19 11/19/19 11/20/19 Range/Units 16:41 21:44 03:25 RBC 3.60 L (3.65-5.03) M/mm3 Sodium (137-145) mmol/L POC Glucose 172 H 179 H (70-105) Calcium (8.4-10.2) mg/dL Albumin (3.9-5) g/dL 11/20/19 11/20/19 11/20/19 Range/Units 03:25 07:28 11:37 RBC (3.65-5.03) M/mm3 Sodium 135 L (137-145) mmol/L POC Glucose 160 H 234 H (70-105) Calcium 8.2 L (8.4-10.2) mg/dL Albumin 2.5 L (3.9-5) g/dL All other labs normal.
[2019-11-20] MEDS ORDERED: traMADol 50 MG TAB PO PRN (17:13)
[2019-11-20] MEDS ORDERED: CYCLOBENZAPRINE 10 MG TAB PO PRN (17:13)
--- NOTE | 2019-11-20 17:17 | Progress Note ---
Assessment and Plan Assessment and plan: 73 y/o AAF with history of HTN and diabetes apparently doing well till 2 days ago was found on floor in urine.Patient was confused and altered during initial ED presentation.In the next one hour was back to baseline and coherent.Poor historian.Says she was taking care of herself till 2 days ago..Was treated for UTI in the last one week. No dysuria or fever. Patient was taken to another hospital last night and was given some IV fluids but released with another prescription for antibiotics. Is unknown with the urinalysis showed at that time. Patient is presenting here complaining of left- sided headache and some left-sided neck pain. Patient also states she has some low back pain as well. Patient is not unable to give a proper timeline of the last several days. Per daughter patient was found on the floor at home in pool of urine and altered Patient was active with complete of ADL up to a few days ago She came off a relationship in the Last few months and may be depressed, the daughter is also requesting Rebecca-psych eval She has been complaining of generalized body pain Her blood sugar has been persistently elevated she was recently treated in [facility] ED for ACUTE PYELONEPHRITIS AND NON COMPLIANCE WITH MEDICATIONS ALSO LEUKOCYTOSIS. She had presented there with headache and generalized body aches and leg pain On evaluation today, she is in no acute distress. Mental status is improved but she does not remember much about the last 2 days and does not know the names of medicines she takes. she is very lethargic and unable to move without assistance She has some edema with the leg. she has persistent Tachycardia She was to have an appointment with Carola Riggs MD neurologist outpatient prior to being readmitted. 11/20/19: Continue supportive care son came to visit discussed with him over the phone. Started on tramadol for neck pain. CT cervical spine obtained shows DJD. Await MRI discussed with neurology anticipate discharge in a.m. following PT OT evaluation and treat. (1) Acute encephalopathy possible underlining dementia versus delirium Current Visit: Yes Status: Acute Plan to address problem: Resolving Will obtain MRI OF HEAD, Neurology consulted PT OT PATIENT IS A HIGH FALL RISK- SHE HAD A FALL 2 MONTHS AGO NEUROLOGY CONSULT discussed with neurology consider dementia early onset. This is also been discussed with the son. ECHO FOR THE HEART CONSIDERING ALL THE PAIN POINTS, FIBROMYALGIA IS IN THE DIFFERENTIALS, continue Cymbalta No need for lumbar puncture at this time. Nevertheless will await MRI for further evaluation U/A negative Hypoglycemia episode Near baseline mentation IV Fluids for now Empiric IV Rocephin (2) Rhabdomyolysis Current Visit: Yes Status: Acute Qualifiers: Encounter type: initial encounter Plan to address problem: Patient was lying on floor for some time IV fluids for Rhabdomyolysis Resolving. (3) IDDM (insulin dependent diabetes mellitus) Current Visit: Yes Status: Chronic Plan to address problem: Uncontrolled A1c 9.7 Novolog mix initiated Accucheks and coverage (4) HTN (hypertension) Current Visit: Yes Status: Chronic Qualifiers: Hypertension type: essential hypertension Qualified Code(s): I10 - Essential (primary) hypertension Plan to address problem: Cont antihypertensives (5) Hyperkalemia Current Visit: Yes Status: Acute Plan to address problem: Treated (6) neck pain rule out cervical radiculopathy CT cervical spine obtained shows DJD. Continue tramadol. (7)DVT prophylaxis Current Visit: Yes Status: Acute Plan to address problem: On Heparin and GI prophylaxis History Interval history: Patient seen and examined, complains of left-sided pain in the neck and lower extremity. Per nursing staff was confused early hours of this morning thinking she was home. Hospitalist Physical - Physical exam Narrative exam: General appearance: Present: mild distress, well-nourished, obese, o - EENT Eyes: Present: PERRL, EOM intact. Absent: scleral icterus, conjunctival injection, ENT: hearing intact, clear oral mucosa, dentition normal - Neck Neck: Present: supple, tender at the left base of the neck - Respiratory Respiratory effort: normal Respiratory: bilateral: CTA - Cardiovascular Rhythm: regular Heart Sounds: Present: S1 & S2. Absent: systolic murmur, diastolic murmur - Extremities Extremities: no ischemia, pulses intact, pulses symmetrical, normal temperature, normal color, Full ROM Extremity abnormal: edema (trace bilatral lower ext edema) Peripheral Pulses: within normal limits - Abdominal General gastrointestinal: soft, non-tender, non-distended, normal bowel sounds - Integumentary Integumentary: Present: clear, warm, dry. Absent: erythema - Psychiatric Psychiatric: appropriate mood/affect, other (intermittent periods of confusion) - Allied Health Allied health notes reviewed: nursing - Constitutional Vitals: Temp Pulse Resp BP Pulse Ox 100.2 F H 95 H 20 162/132 96 11/20/19 12:45 11/20/19 12:45 11/20/19 12:45 11/20/19 12:45 11/20/19 12:45 General appearance: Present: mild distress, well-nourished, obese, other (lethargic) Results - Labs CBC & Chem 7: 11/20/19 03:25 11/20/19 03:25 Labs: Laboratory Last Values WBC 10.8 K/mm3 (4.5-11.0) 11/20/19 03:25 RBC 3.60 M/mm3 (3.65-5.03) L 11/20/19 03:25 Hgb 10.6 gm/dl (10.1-14.3) 11/20/19 03:25 Hct 32.3 % (30.3-42.9) 11/20/19 03:25 MCV 90 fl (79-97) 11/20/19 03:25 MCH 30 pg (28-32) 11/20/19 03:25 MCHC 33 % (30-34) 11/20/19 03:25 RDW 13.6 % (13.2-15.2) 11/20/19 03:25 Plt Count 219 K/mm3 (140-440) 11/20/19 03:25 Lymph % (Auto) 15.2 % (13.4-35.0) 11/19/19 05:08 Beckham % (Auto) 7.2 % (0.0-7.3) 11/19/19 05:08 Eos % (Auto) 0.6 % (0.0-4.3) 11/19/19 05:08 Baso % (Auto) 0.6 % (0.0-1.8) 11/19/19 05:08 Lymph # 1.8 K/mm3 (1.2-5.4) 11/19/19 05:08 Beckham # 0.8 K/mm3 (0.0-0.8) 11/19/19 05:08 Eos # 0.1 K/mm3 (0.0-0.4) 11/19/19 05:08 Baso # 0.1 K/mm3 (0.0-0.1) 11/19/19 05:08 Seg Neutrophils % 76.4 % (40.0-70.0) H 11/19/19 05:08 Seg Neutrophils # 8.8 K/mm3 (1.8-7.7) H 11/19/19 05:08 Sodium 135 mmol/L (137-145) L 11/20/19 03:25 Potassium 4.6 mmol/L (3.6-5.0) 11/20/19 03:25 Chloride 99.8 mmol/L (98-107) 11/20/19 03:25 Carbon Dioxide 23 mmol/L (22-30) 11/20/19 03:25 Anion Gap 17 mmol/L 11/20/19 03:25 BUN 9 mg/dL (7-17) 11/20/19 03:25 Creatinine 0.7 mg/dL (0.7-1.2) 11/20/19 03:25 Estimated GFR > 60 ml/min 11/20/19 03:25 BUN/Creatinine Ratio 13 % 11/20/19 03:25 Glucose 69 mg/dL (65-100) 11/20/19 03:25 POC Glucose 163 (70-105) H 11/20/19 16:34 Hemoglobin A1c 9.7 % (4-6) H 11/18/19 14:25 Lactic Acid 1.80 mmol/L (0.7-2.0) 11/18/19 18:57 Calcium 8.2 mg/dL (8.4-10.2) L 11/20/19 03:25 Total Bilirubin 0.30 mg/dL (0.1-1.2) 11/20/19 03:25 AST 33 units/L (5-40) 11/20/19 03:25 ALT 16 units/L (7-56) 11/20/19 03:25 Alkaline Phosphatase 78 units/L (35-129) 11/20/19 03:25 Total Creatine Kinase 1249 units/L (30-135) H 11/19/19 09:37 Total Protein 6.6 g/dL (6.3-8.2) 11/20/19 03:25 Albumin 2.5 g/dL (3.9-5) L 11/20/19 03:25 Albumin/Globulin Ratio 0.6 % 11/20/19 03:25 Triglycerides 116 mg/dL (2-149) 11/19/19 09:37 Cholesterol 190 mg/dL (50-199) 11/19/19 09:37 LDL Cholesterol Direct 118 mg/dL (50-130) 11/19/19 09:37 HDL Cholesterol 47 mg/dL (40-59) 11/19/19 09:37 Cholesterol/HDL Ratio 4.04 % 11/19/19 09:37 Urine Color Yellow (Yellow) 11/18/19 15:59 Urine Turbidity Clear (Clear) 11/18/19 15:59 Urine pH 5.0 (5.0-7.0) 11/18/19 15:59 Ur Specific Friend 1.022 (1.003-1.030) 11/18/19 15:59 Urine Protein 30 mg/dl mg/dL (Negative) 11/18/19 15:59 Urine Glucose (UA) >=500 mg/dL (Negative) 11/18/19 15:59 Urine Ketones 20 mg/dL (Negative) 11/18/19 15:59 Urine Blood Mod (Negative) 11/18/19 15:59 Urine Nitrite Neg (Negative) 11/18/19 15:59 Urine Bilirubin Neg (Negative) 11/18/19 15:59 Urine Urobilinogen < 2.0 mg/dL (<2.0) 11/18/19 15:59 Ur Leukocyte Esterase Neg (Negative) 11/18/19 15:59 Urine WBC (Auto) 3.0 /HPF (0.0-6.0) 11/18/19 15:59 Urine RBC (Auto) 3.0 /HPF (0.0-6.0) 11/18/19 15:59 U Epithel Cells (Auto) 1.0 /HPF (0-13.0) 11/18/19 15:59 Urine Mucus Few /HPF 11/18/19 15:59 Active Medications - Current Medications Current Medications: Generic Name Dose Route Start Last Admin Trade Name Freq PRN Reason Stop Dose Admin Acetaminophen 650 mg 11/18/19 21:03 Tylenol PO Q4H PRN Pain MILD(1-3)/Fever >100.5/ARVIZU Cyclobenzaprine HCl 10 mg 11/20/19 17:13 Flexeril PO BID PRN Muscle Spasm Dextrose 50 ml 11/19/19 09:07 D50w (25gm) Syringe IV Q30MIN PRN Hypoglycemia Protocol Duloxetine HCl 20 mg 11/19/19 10:00 11/20/19 09:28 Cymbalta PO 20 mg QDAY KALINA Administration Famotidine 20 mg 11/18/19 22:00 11/20/19 09:28 Pepcid IV 20 mg BID KALINA Administration Gabapentin 400 mg 11/19/19 14:00 11/20/19 13:05 Gabapentin PO 400 mg TID KALINA Administration Hydralazine HCl 10 mg 11/20/19 17:15 Apresoline IV Q4HR PRN Hypertension Sodium Chloride 1,000 mls @ 75 mls/hr 11/18/19 21:15 11/19/19 19:39 Nacl 0.9% 1000 Ml IV 75 mls/hr DIRECT KALINA Administration Ceftriaxone Sodium 2 gm in 100 mls @ 200 mls/hr 11/19/19 10:00 11/20/19 09:28 Rocephin/Ns 2 Gm/100 Ml IV 200 mls/hr Q24HR KALINA Administration Protocol Insulin Human Isoph/Insulin Regular 15 unit 11/19/19 09:00 11/20/19 08:30 Humulin 70/30 SUB-Q 15 unit BIDDIAB KALINA Administration Insulin Human Lispro 0 unit 11/19/19 11:30 11/20/19 13:05 Humalog SUB-Q 4 unit ACHS KALINA Administration Protocol Lisinopril 20 mg 11/19/19 10:00 11/20/19 09:28 Zestril PO 20 mg QDAY KALINA Administration Miscellaneous Medication 1 drops 11/20/19 22:00 Dorzolamide/Timolol(Nf) 2-0.5% OP BID KALINA Miscellaneous Medication 1 drop 11/20/19 22:00 Latanoprostene Bunod [Vyzulta] OP HS KALINA Ondansetron HCl 4 mg 11/18/19 21:03 Zofran IV Q8H PRN Nausea And Vomiting Oxycodone/Acetaminophen 1 tab 11/18/19 21:03 11/20/19 04:03 Percocet 5/325 PO 1 tab Q6H PRN Administration Pain, Moderate (4-6) Sodium Chloride 10 ml 11/18/19 22:00 11/20/19 09:29 Sodium Chloride Flush Syringe 10 Ml IV 10 ml BID KALINA Administration Sodium Chloride 10 ml 02/28/20 21:03 Sodium Chloride Flush Syringe 10 Ml IV PRN PRN LINE FLUSH Tramadol HCl 50 mg 11/20/19 17:13 Ultram PO Q6HR PRN PAIN Nutrition/Malnutrition Assess - Dietary Evaluation Nutrition/Malnutrition Findings: Nutrition Notes Start: 11/19/19 11:01 Freq: Status: Active Protocol: Document 11/19/19 11:01 LM (Rec: 11/19/19 11:13 LM [id number]) Nutrition Notes Need for Assessment generated from: MD Order Initial or Follow up Assessment Current Diagnosis Diabetes,Hypertension Other Pertinent Diagnosis acute encephalopathy, DVT Current Diet Cardiac/consistent CHO Labs/Tests POC glu 255 HgbA1c 9.7 Pertinent Medications NaCl at 75ml/hr Height 5 ft 3 in Weight 86 kg [place] Body Weight (kg) 52.27 BMI 33.5 Intake Prior to Admission Fair Weight Status Overweight Subjective/Other Information MD consult for poor oral intake. Pt stated she eats plenty at home and has had no wt loss. Pt does not like the food here. Food preferences taken. Noticed BG and high A1c . Pt in pain at time of visit, not appropriate time to give DM diet education. Malik score is 16 but no documentation of wound. Burn Absent Trauma Absent GI Symptoms None Current % PO Poor (25-49%) Minimum of two criteria No physical signs of malnutrition #1 Nutrition Diagnosis Inadequate oral intake Etiology pt does not like hospital food provided As Evidenced by Signs and Symptoms Pt eating less than 50% of breakfast Is patient on ventilator? No Is Patient Ambulatory and/or Out of Bed No REE-([facility]-confined to bed) 1618.740 Kcal/Kg value to use for calculation 16 Approximate Energy Requirements Using 1376 kcal/Kg Calculation Used for Recommendations Kcal/kg Additional Notes Protein: 69-83g (1-1.2g/kg AdjBW 69kg) Fluid: 1 ml/kcal Nutrition Intervention Change Diet Order: Continue Goal #1 Meet at least 75% of energy and protein needs Anticipated Discharge Needs: Cardiac/consistent CHO Follow-Up By: 11/22/19 Additional Comments F/U for intakes, DM diet education
--- NOTE | 2019-11-20 19:08 | Consultation ---
HISTORY OF PRESENT ILLNESS: This is a 73-year-old black female who presents to the Emergency Room of [facility] with altered mental state. The patient presents with potentially having a fall at home 2 days prior to admission and was found lying in her own urine, was unable to walk, presented to the Emergency Room with a probable urinary tract infection. Subsequent to admission, she was continued to be confused with altered mental status. Reviewing her chart, she has a history of alcohol use. She was a former smoker. She has altered mental status, disoriented to person, place, and time. Examination shows blood pressure is 150/70, pulse rate is 95, respirations 18, temperature is 97 degrees. The patient has a hematocrit of 37, white blood count is elevated at 14,000. The patient has a positive urinary ketones. Reviewing her CT scan of the head, there is evidence of mild atrophy and white matter changes. IMPRESSION: Suspect dementia in this case versus age-related atrophy, which may not be consequential, but may have triggered the episode of acute delirium related to her urinary tract infection. Plan to get an MRI scan on the patient further assess the patient. At this point, I do not think the patient has had a stroke. I would recommend continued observation, getting a better history from family members to see if there is any progressive memory loss. When I saw the patient, she did not know where she was, she could not operate her cell phone. She did not actually even know she was in the hospital, she was having a conversation with one of her relatives over the cell phone, did not know where she is, really could not even identify what state she was in. When I explained to her that she was in [place], [place], this was _[place] airport, she seemed to have a vague understanding of this, but could not relate this information to the family member on the cell phone. My suggestion is to monitor the patient's status. This may be just a short-term delirium. It is hard to say whether she will return to baseline, but she certainly is very cognitively impaired at present time given the severe degree of disorientation that she has. We do not find any focal neurological deficits to suggest a stroke. I do not think she either had a seizure, but it might be worthwhile getting an EEG as well. JOB# [id number] MAURA/NTS
[2019-11-20] MEDS: hydrALAZINE 20 MG/1 ML INJ IV PRN ×2 (19:41→20:28)
[2019-11-20] MEDS: ACETAMINOPHEN 325 MG TAB PO PRN (20:19)
[2019-11-20] MEDS: SODIUM CHLORIDE 0.9% 1000 ML 1,000 ML IV SCH (20:30)
[2019-11-20] MEDS ORDERED: LATANOPROSTENE BUNOD OP SCH (22:00)
[2019-11-20] MEDS ORDERED: TIMOLOL OP SCH ×2 (22:00)
[2019-11-20] MEDS ORDERED: DORZOLAMIDE OP SCH ×2 (22:00)
[2019-11-21] MEDS: oxyCODONE /ACETAMINOPHEN 5-325MG TAB PO PRN (02:14)
[2019-11-21] MEDS: INSULIN LISPRO 100 UNIT/ML SUB-Q SCH ×5 (07:39→22:23)
[2019-11-21] MEDS: GABAPENTIN 400 MG CAP PO SCH ×3 (08:21→19:37)
[2019-11-21] MEDS: INSULIN NPH/REGULAR 70/30 INJ SUB-Q SCH ×2 (08:22→17:30)
[2019-11-21] MEDS: cefTRIAXone/NS 2 GM/100 ML 2 GM/100 ML BAG IV SCH (09:39)
[2019-11-21] MEDS: FAMOTIDINE 20 MG TAB PO SCH ×2 (09:39→22:24)
[2019-11-21] MEDS: DULoxetine 20 MG CAP PO SCH (09:39)
[2019-11-21] MEDS: LISINOPRIL 20 MG TAB PO SCH (09:40)
[2019-11-21] MEDS ORDERED: LISINOPRIL 20 MG TAB PO SCH (10:00)
--- NOTE | 2019-11-21 11:49 | Progress Note ---
Assessment and Plan Assessment and plan: 73 y/o AAF with history of HTN and diabetes apparently doing well till 2 days ago was found on floor in urine.Patient was confused and altered during initial ED presentation.In the next one hour was back to baseline and coherent.Poor historian.Says she was taking care of herself till 2 days ago..Was treated for UTI in the last one week. No dysuria or fever. Patient was taken to another hospital last night and was given some IV fluids but released with another prescription for antibiotics. Is unknown with the urinalysis showed at that time. Patient is presenting here complaining of left- sided headache and some left-sided neck pain. Patient also states she has some low back pain as well. Patient is not unable to give a proper timeline of the last several days. Per daughter patient was found on the floor at home in pool of urine and altered Patient was active with complete of ADL up to a few days ago She came off a relationship in the Last few months and may be depressed, the daughter is also requesting Rebecca-psych eval She has been complaining of generalized body pain Her blood sugar has been persistently elevated she was recently treated in [facility] ED for ACUTE PYELONEPHRITIS AND NON COMPLIANCE WITH MEDICATIONS ALSO LEUKOCYTOSIS. She had presented there with headache and generalized body aches and leg pain On evaluation today, she is in no acute distress. Mental status is improved but she does not remember much about the last 2 days and does not know the names of medicines she takes. she is very lethargic and unable to move without assistance She has some edema with the leg. she has persistent Tachycardia She was to have an appointment with Carola Riggs MD neurologist outpatient prior to being readmitted. 11/20/19: Continue supportive care son came to visit discussed with him over the phone. Started on tramadol for neck pain. CT cervical spine obtained shows DJD. Await MRI discussed with neurology anticipate discharge in a.m. following PT OT evaluation and treat. (1) Acute encephalopathy possible underlining dementia versus delirium Current Visit: Yes Status: Acute Plan to address problem: Resolving Will obtain MRI OF HEAD, Neurology consulted PT OT PATIENT IS A HIGH FALL RISK- SHE HAD A FALL 2 MONTHS AGO NEUROLOGY CONSULT discussed with neurology consider dementia early onset. This is also been discussed with the son. ECHO FOR THE HEART CONSIDERING ALL THE PAIN POINTS, FIBROMYALGIA IS IN THE DIFFERENTIALS, continue Cymbalta No need for lumbar puncture at this time. Nevertheless will await MRI for further evaluation U/A negative Hypoglycemia episode Near baseline mentation IV Fluids for now Empiric IV Rocephin (2) Rhabdomyolysis Current Visit: Yes Status: Acute Qualifiers: Encounter type: initial encounter Plan to address problem: Patient was lying on floor for some time IV fluids for Rhabdomyolysis Resolving. (3) IDDM (insulin dependent diabetes mellitus) Current Visit: Yes Status: Chronic Plan to address problem: Uncontrolled A1c 9.7 Novolog mix initiated Accucheks and coverage (4) HTN (hypertension) Current Visit: Yes Status: Chronic Qualifiers: Hypertension type: essential hypertension Qualified Code(s): I10 - Essential (primary) hypertension Plan to address problem: Cont antihypertensives (5) Hyperkalemia Current Visit: Yes Status: Acute Plan to address problem: Treated (6) neck pain rule out cervical radiculopathy CT cervical spine obtained shows DJD. Continue tramadol. (7)DVT prophylaxis Current Visit: Yes Status: Acute Plan to address problem: On Heparin and GI prophylaxis Disposition; pending MRI and PT recommendations. History Interval history: Patient was seen and evaluated this morning, patient was alert and oriented. Hospitalist Physical - Physical exam Narrative exam: Not in cardiopulmonary distress. The patient is obese. Vital signs as documented. Head exam is unremarkable. No scleral icterus . Neck is without jugular venous distension, thyromegaly, or carotid bruits. Lungs are clear to auscultation. Cardiac exam reveals regular rate and Rhythm. Abdominal exam reveals normal bowel sounds, nontender, no organomegaly. Extremities are nonedematous and both femoral and pedal pulses are normal. VIBRATION ANALYST: Alert and oriented 3. No focal weakness. - Constitutional Vitals: Temp Pulse Resp BP Pulse Ox 98.9 F 91 H 22 178/87 99 11/21/19 07:48 11/21/19 09:40 11/21/19 10:00 11/21/19 09:40 11/21/19 07:48 General appearance: Present: mild distress, well-nourished, obese, other (lethargic) Results - Labs CBC & Chem 7: 11/20/19 03:25 11/20/19 03:25 Labs: Laboratory Last Values WBC 10.8 K/mm3 (4.5-11.0) 11/20/19 03:25 RBC 3.60 M/mm3 (3.65-5.03) L 11/20/19 03:25 Hgb 10.6 gm/dl (10.1-14.3) 11/20/19 03:25 Hct 32.3 % (30.3-42.9) 11/20/19 03:25 MCV 90 fl (79-97) 11/20/19 03:25 MCH 30 pg (28-32) 11/20/19 03:25 MCHC 33 % (30-34) 11/20/19 03:25 RDW 13.6 % (13.2-15.2) 11/20/19 03:25 Plt Count 219 K/mm3 (140-440) 11/20/19 03:25 Lymph % (Auto) 15.2 % (13.4-35.0) 11/19/19 05:08 Ritchie % (Auto) 7.2 % (0.0-7.3) 11/19/19 05:08 Eos % (Auto) 0.6 % (0.0-4.3) 11/19/19 05:08 Baso % (Auto) 0.6 % (0.0-1.8) 11/19/19 05:08 Lymph # 1.8 K/mm3 (1.2-5.4) 11/19/19 05:08 Ritchie # 0.8 K/mm3 (0.0-0.8) 11/19/19 05:08 Eos # 0.1 K/mm3 (0.0-0.4) 11/19/19 05:08 Baso # 0.1 K/mm3 (0.0-0.1) 11/19/19 05:08 Seg Neutrophils % 76.4 % (40.0-70.0) H 11/19/19 05:08 Seg Neutrophils # 8.8 K/mm3 (1.8-7.7) H 11/19/19 05:08 Sodium 135 mmol/L (137-145) L 11/20/19 03:25 Potassium 4.6 mmol/L (3.6-5.0) 11/20/19 03:25 Chloride 99.8 mmol/L (98-107) 11/20/19 03:25 Carbon Dioxide 23 mmol/L (22-30) 11/20/19 03:25 Anion Gap 17 mmol/L 11/20/19 03:25 BUN 9 mg/dL (7-17) 11/20/19 03:25 Creatinine 0.7 mg/dL (0.7-1.2) 11/20/19 03:25 Estimated GFR > 60 ml/min 11/20/19 03:25 BUN/Creatinine Ratio 13 % 11/20/19 03:25 Glucose 69 mg/dL (65-100) 11/20/19 03:25 POC Glucose 224 (70-105) H 11/21/19 07:37 Hemoglobin A1c 9.7 % (4-6) H 11/18/19 14:25 Lactic Acid 1.80 mmol/L (0.7-2.0) 11/18/19 18:57 Calcium 8.2 mg/dL (8.4-10.2) L 11/20/19 03:25 Total Bilirubin 0.30 mg/dL (0.1-1.2) 11/20/19 03:25 AST 33 units/L (5-40) 11/20/19 03:25 ALT 16 units/L (7-56) 11/20/19 03:25 Alkaline Phosphatase 78 units/L (35-129) 11/20/19 03:25 Total Creatine Kinase 1249 units/L (30-135) H 11/19/19 09:37 Total Protein 6.6 g/dL (6.3-8.2) 11/20/19 03:25 Albumin 2.5 g/dL (3.9-5) L 11/20/19 03:25 Albumin/Globulin Ratio 0.6 % 11/20/19 03:25 Triglycerides 116 mg/dL (2-149) 11/19/19 09:37 Cholesterol 190 mg/dL (50-199) 11/19/19 09:37 LDL Cholesterol Direct 118 mg/dL (50-130) 11/19/19 09:37 HDL Cholesterol 47 mg/dL (40-59) 11/19/19 09:37 Cholesterol/HDL Ratio 4.04 % 11/19/19 09:37 Urine Color Yellow (Yellow) 11/18/19 15:59 Urine Turbidity Clear (Clear) 11/18/19 15:59 Urine pH 5.0 (5.0-7.0) 11/18/19 15:59 Ur Specific [place] 1.022 (1.003-1.030) 11/18/19 15:59 Urine Protein 30 mg/dl mg/dL (Negative) 11/18/19 15:59 Urine Glucose (UA) >=500 mg/dL (Negative) 11/18/19 15:59 Urine Ketones 20 mg/dL (Negative) 11/18/19 15:59 Urine Blood Mod (Negative) 11/18/19 15:59 Urine Nitrite Neg (Negative) 11/18/19 15:59 Urine Bilirubin Neg (Negative) 11/18/19 15:59 Urine Urobilinogen < 2.0 mg/dL (<2.0) 11/18/19 15:59 Ur Leukocyte Esterase Neg (Negative) 11/18/19 15:59 Urine WBC (Auto) 3.0 /HPF (0.0-6.0) 11/18/19 15:59 Urine RBC (Auto) 3.0 /HPF (0.0-6.0) 11/18/19 15:59 U Epithel Cells (Auto) 1.0 /HPF (0-13.0) 11/18/19 15:59 Urine Mucus Few /HPF 11/18/19 15:59 Active Medications - Current Medications Current Medications: Generic Name Dose Route Start Last Admin Trade Name Freq PRN Reason Stop Dose Admin Acetaminophen 650 mg 11/18/19 21:03 11/20/19 20:19 Tylenol PO 650 mg Q4H PRN Administration Pain MILD(1-3)/Fever >100.5/ARVIZU Cyclobenzaprine HCl 10 mg 11/20/19 17:13 11/20/19 20:20 Flexeril PO 10 mg BID PRN Administration Muscle Spasm Dextrose 50 ml 11/19/19 09:07 D50w (25gm) Syringe IV Q30MIN PRN Hypoglycemia Protocol Duloxetine HCl 20 mg 11/19/19 10:00 11/21/19 09:39 Cymbalta PO 20 mg QDAY KALINA Administration Famotidine 20 mg 11/21/19 10:00 11/21/19 09:39 Pepcid PO 20 mg BID KALINA Administration Gabapentin 400 mg 11/19/19 14:00 11/21/19 08:21 Gabapentin PO 400 mg TID KALINA Administration Hydralazine HCl 10 mg 11/20/19 17:15 11/20/19 20:28 Apresoline IV 10 mg Q4HR PRN Administration Hypertension Sodium Chloride 1,000 mls @ 75 mls/hr 11/18/19 21:15 11/20/19 20:30 Nacl 0.9% 1000 Ml IV 75 mls/hr DIRECT KALINA Administration Ceftriaxone Sodium 2 gm in 100 mls @ 200 mls/hr 11/19/19 10:00 11/21/19 09:39 Rocephin/Ns 2 Gm/100 Ml IV 200 mls/hr Q24HR KALINA Administration Protocol Insulin Human Isoph/Insulin Regular 15 unit 11/19/19 09:00 11/21/19 08:22 Humulin 70/30 SUB-Q 15 unit BIDDIAB KALINA Administration Insulin Human Lispro 0 unit 11/19/19 11:30 11/21/19 08:22 Humalog SUB-Q 4 unit ACHS KALINA Administration Protocol Lisinopril 20 mg 11/19/19 10:00 11/21/19 09:40 Zestril PO 20 mg QDAY KALINA Administration Miscellaneous Medication 1 drop 11/20/19 22:00 Latanoprostene Bunod [Vyzulta] OP HS KALINA Miscellaneous Medication 1 drops 11/20/19 22:00 Dorzolamide/Timolol(Nf) 2-0.5% OP BID KALINA Ondansetron HCl 4 mg 11/18/19 21:03 Zofran IV Q8H PRN Nausea And Vomiting Oxycodone/Acetaminophen 1 tab 11/18/19 21:03 11/21/19 02:14 Percocet 5/325 PO 1 tab Q6H PRN Administration Pain, Moderate (4-6) Sodium Chloride 10 ml 11/18/19 22:00 11/21/19 09:41 Sodium Chloride Flush Syringe 10 Ml IV 10 ml BID KALINA Administration Sodium Chloride 10 ml 11/18/19 21:03 Sodium Chloride Flush Syringe 10 Ml IV PRN PRN LINE FLUSH Tramadol HCl 50 mg 11/20/19 17:13 Ultram PO Q6HR PRN Pain, Moderate (4-6) Nutrition/Malnutrition Assess - Dietary Evaluation Nutrition/Malnutrition Findings: Nutrition Notes Start: 11/19/19 11:01 Freq: Status: Active Protocol: Document 11/19/19 11:01 LM (Rec: 11/19/19 11:13 SUZANNE [email or web address]) Nutrition Notes Need for Assessment generated from: MD Order Initial or Follow up Assessment Current Diagnosis Diabetes,Hypertension Other Pertinent Diagnosis acute encephalopathy, DVT Current Diet Cardiac/consistent CHO Labs/Tests POC glu 255 HgbA1c 9.7 Pertinent Medications NaCl at 75ml/hr Height 5 ft 3 in Weight 86 kg [place] Body Weight (kg) 52.27 BMI 33.5 Intake Prior to Admission Fair Weight Status Overweight Subjective/Other Information MD consult for poor oral intake. Pt stated she eats plenty at home and has had no wt loss. Pt does not like the food here. Food preferences taken. Noticed BG and high A1c . Pt in pain at time of visit, not appropriate time to give DM diet education. Malik score is 16 but no documentation of wound. Burn Absent Trauma Absent GI Symptoms None Current % PO Poor (25-49%) Minimum of two criteria No physical signs of malnutrition #1 Nutrition Diagnosis Inadequate oral intake Etiology pt does not like hospital food provided As Evidenced by Signs and Symptoms Pt eating less than 50% of breakfast Is patient on ventilator? No Is Patient Ambulatory and/or Out of Bed No REE-([facility]-confined to bed) 1618.740 Kcal/Kg value to use for calculation 16 Approximate Energy Requirements Using 1376 kcal/Kg Calculation Used for Recommendations Kcal/kg Additional Notes Protein: 69-83g (1-1.2g/kg AdjBW 69kg) Fluid: 1 ml/kcal Nutrition Intervention Change Diet Order: Continue Goal #1 Meet at least 75% of energy and protein needs Anticipated Discharge Needs: Cardiac/consistent CHO Follow-Up By: 11/22/19 Additional Comments F/U for intakes, DM diet education
[2019-11-21] MEDS: ACETAMINOPHEN 325 MG TAB PO PRN (19:37)
[2019-11-21] MEDS: hydrALAZINE 20 MG/1 ML INJ IV PRN (19:37)
[2019-11-22] MEDS: oxyCODONE /ACETAMINOPHEN 5-325MG TAB PO PRN ×2 (00:46→11:32)
[2019-11-22 05:25] LABS: Basophils % (Auto) 0.3 % (0.0-1.8); Eosinophils # (Auto) 0.1 K/mm3 (0.0-0.4); Eosinophils % (Auto) 1.5 % (0.0-4.3); Hematocrit 30.5 % (30.3-42.9); Hemoglobin 9.9 gm/dl (10.1-14.3); Lymphocytes # (Auto) 1.8 K/mm3 (1.2-5.4); Lymphocytes % (Auto) 18.1 % (13.4-35.0); Mean Corpuscular HGB Conc 33 % (30-34); Mean Corpuscular Volume 90 fl (79-97); Monocytes # (Auto) 1.1 K/mm3 (0.0-0.8); Monocytes % (Auto) 10.7 % (0.0-7.3); Platelet Count 272 K/mm3 (140-440); Red Blood Count 3.39 M/mm3 (3.65-5.03); Red Cell Distribution Width 13.4 % (13.2-15.2)
[2019-11-22 05:44] LABS: BUN/Creatinine Ratio 13; Blood Urea Nitrogen 8 mg/dL (7-17); Calcium 8.9 mg/dL (8.4-10.2); Hemolysis Index 0
--- NOTE | 2019-11-22 07:05 | Discharge Summary ---
Providers - Providers Date of Admission: 11/18/19 17:00 Attending physician: SARANYA MADRID MD 11/19/19 08:04 Consult to Physician [CONS] Routine Comment: called office/ amy Consulting Provider: SARAY GASTELUM Physician Instructions: Reason For Exam: altered mental status 11/19/19 09:09 Consult to Dietitian/Nutrition [CONS] Routine Physician Instructions: Reason For Exam: Reason for Consult: Poor oral intake Occupational Therapy Evaluate and Treat [CONS] Routine Comment: Reason For Exam: ATAXIA Physical Therapy Evaluation and Treat [CONS] Routine Comment: Reason For Exam: ATAXIA 11/19/19 18:16 Consult to Mental Health [CONS] Routine Reason For Exam: depression Primary care physician: BUSINESS TECHNOLOGY ARCHITECT Hospitalization Reason for admission: Altered mental status Condition: Stable Hospital course: 73 y/o AAF with history of HTN and diabetes apparently doing well till 2 days ago was found on floor in urine.Patient was confused and altered during initial ED presentation.In the next one hour was back to baseline and coherent.Poor historian.Says she was taking care of herself till 2 days ago..Was treated for UTI in the last one week. No dysuria or fever. Patient was taken to another hospital last night and was given some IV fluids but released with another prescription for antibiotics. Is unknown with the urinalysis showed at that time. Patient is presenting here complaining of left- sided headache and some left-sided neck pain. Patient also states she has some low back pain as well. Patient is not unable to give a proper timeline of the last several days. Per daughter patient was found on the floor at home in pool of urine and altered Patient was active with complete of ADL up to a few days ago She came off a relationship in the Last few months and may be depressed, the daughter is also requesting Rebecca-psych eval She has been complaining of generalized body pain Her blood sugar has been persistently elevated she was recently treated in [facility] ED for ACUTE PYELONEPHRITIS AND NON COMPLIANCE WITH MEDICATIONS ALSO LEUKOCYTOSIS. She had presented there with headache and generalized body aches and leg pain On evaluation today, she is in no acute distress. Mental status is improved but she does not remember much about the last 2 days and does not know the names of medicines she takes. she was very lethargic and unable to move without assistance She has some edema with the leg. she has persistent Tachycardia She was to have an appointment with Carola Riggs MD neurologist outpatient prior to being readmitted. During the course of hospitalization she was evaluated by neurology also physical therapy evaluated her. Initial CT of the head was negative. MRI was u nable to be obtained due to implant. She also had a cervical spine imaging study which showed DJD mild in nature. We did have extensive discussion with the family the son in detail in detail and neurology recommendation that this is likely early stages of dementia. Her mental status is improved at this time and she is stable for discharge. I have also started her on Cymbalta as she does have pain in different pain points concerning for fibromyalgia have discussed with the son that if this is not helpful the primary care doctor can make changes. Patient was treated empirically for rhabdomyolysis due to prolonged time on the floor and also with IV Rocephin for presumed urinary tract infection. No evidence of sepsis was identified. While patient is still in house while awaiting placement. Patient will continue on current treatments no significant findings noted at this time. (1) Acute encephalopathy secondary to dementia (2) Rhabdomyolysis (3) IDDM (insulin dependent diabetes mellitus) (4) HTN (hypertension) (5) Hyperkalemia (6) neck pain secondary to DJD (7) constipation Disposition: DC/[place]-03 [facility] C[facility] Time spent for discharge: 35-minute Core Measure Documentation - Palliative Care Palliative Care/ Comfort Measures: Not Applicable - Core Measures Any of the following diagnoses?: none Exam - Physical Exam Narrative exam: VITAL SIGNS: Reviewed. GENERAL: The patient appears normally developed, obese vital signs as documented. HEAD: No signs of head trauma. EYES: Pupils are equal. Extraocular motions intact. EARS: Hearing grossly intact. MOUTH: Oropharynx is normal. NECK: No adenopathy, no JVD. CHEST: Chest with clear breath sounds bilaterally. No wheezes, rales, or rhonchi. CARDIAC: Regular rate and rhythm. S1 and S2, without murmurs, gallops, or rubs. VASCULAR: No Edema. Peripheral pulses normal and equal in all extremities. ABDOMEN: Soft, non tender and non distended. No rebound or guarding, and no masses palpated. Bowel Sounds normal. MUSCULOSKELETAL: Good range of motion of all major joints. Extremities without clubbing, cyanosis or edema. NEUROLOGIC EXAM: Alert and oriented x 3 No focal sensory or strength deficits. Speech normal. Follows commands. PSYCHIATRIC: Mood normal. SKIN: detail exam as documented in skin assessment - Constitutional Vitals: Temp Pulse Resp BP Pulse Ox 97.5 F L 92 H 18 163/78 96 11/22/19 02:43 11/22/19 02:43 11/22/19 02:43 11/22/19 02:43 11/22/19 02:43 Plan Activity: advance as tolerated, fall precautions Diet: low fat, diabetic Special Instructions: record daily weights, record daily BP diary Follow up with: ROD CRAMER MD [Referring] - 3-5 Days SARAY GASTELUM MD [Staff Physician] - 7 Days Prescriptions: Gabapentin 400 mg PO TID #30 capsule
[2019-11-22] MEDS: INSULIN LISPRO 100 UNIT/ML SUB-Q SCH ×4 (08:00→22:34)
[2019-11-22] MEDS: GABAPENTIN 400 MG CAP PO SCH ×3 (09:20→22:34)
[2019-11-22] MEDS: DULoxetine 20 MG CAP PO SCH (10:45)
[2019-11-22] MEDS: FAMOTIDINE 20 MG TAB PO SCH ×2 (10:46→22:34)
[2019-11-22] MEDS: LISINOPRIL 20 MG TAB PO SCH (10:47)
[2019-11-22] MEDS ORDERED: MAGNESIUM HYDROXIDE (MOM) ORAL LIQD UDC PO ONE (11:00)
[2019-11-22] MEDS: ACETAMINOPHEN 325 MG TAB PO PRN ×2 (14:43→22:33)
[2019-11-22] MEDS: hydrALAZINE 20 MG/1 ML INJ IV PRN ×2 (14:45→22:38)
[2019-11-22] MEDS: SODIUM CHLORIDE 0.9% 1000 ML 1,000 ML IV SCH (22:38)
[2019-11-23] MEDS: oxyCODONE /ACETAMINOPHEN 5-325MG TAB PO PRN (08:25)
[2019-11-23] MEDS: INSULIN LISPRO 100 UNIT/ML SUB-Q SCH ×3 (08:26→17:30)
[2019-11-23] MEDS: GABAPENTIN 400 MG CAP PO SCH ×2 (08:26→13:47)
[2019-11-23] MEDS: hydrALAZINE 20 MG/1 ML INJ IV PRN (08:26)
[2019-11-23] MEDS: FAMOTIDINE 20 MG TAB PO SCH (09:21)
[2019-11-23] MEDS: LISINOPRIL 20 MG TAB PO SCH (09:21)
[2019-11-23] MEDS: DULoxetine 20 MG CAP PO SCH (09:22)
[2019-11-23] MEDS ORDERED: FLEET ENEMA PR SCH (11:30)
--- NOTE | 2019-11-23 12:58 | Discharge Summary ---
Providers - Providers Date of Admission: 11/18/19 17:00 Attending physician: SARANYA MADRID MD 11/19/19 08:04 Consult to Physician [CONS] Routine Comment: called office/ amy Consulting Provider: SARAY GASTELUM Physician Instructions: Reason For Exam: altered mental status 11/19/19 09:09 Consult to Dietitian/Nutrition [CONS] Routine Physician Instructions: Reason For Exam: Reason for Consult: Poor oral intake Occupational Therapy Evaluate and Treat [CONS] Routine Comment: Reason For Exam: ATAXIA Physical Therapy Evaluation and Treat [CONS] Routine Comment: Reason For Exam: ATAXIA 11/19/19 18:16 Consult to Mental Health [CONS] Routine Reason For Exam: depression Primary care physician: CORPORATE DEVELOPMENT MANAGER Hospitalization Reason for admission: Altered mental status Condition: Stable Hospital course: 73 y/o AAF with history of HTN and diabetes apparently doing well till 2 days ago was found on floor in urine.Patient was confused and altered during initial ED presentation.In the next one hour was back to baseline and coherent.Poor historian.Says she was taking care of herself till 2 days ago..Was treated for UTI in the last one week. No dysuria or fever. Patient was taken to another hospital last night and was given some IV fluids but released with another prescription for antibiotics. Is unknown with the urinalysis showed at that time. Patient is presenting here complaining of left- sided headache and some left-sided neck pain. Patient also states she has some low back pain as well. Patient is not unable to give a proper timeline of the last several days. Per daughter patient was found on the floor at home in pool of urine and altered Patient was active with complete of ADL up to a few days ago She came off a relationship in the Last few months and may be depressed, the daughter is also requesting Rebecca-psych eval She has been complaining of generalized body pain Her blood sugar has been persistently elevated she was recently treated in [facility] ED for ACUTE PYELONEPHRITIS AND NON COMPLIANCE WITH MEDICATIONS ALSO LEUKOCYTOSIS. She had presented there with headache and generalized body aches and leg pain On evaluation today, she is in no acute distress. Mental status is improved but she does not remember much about the last 2 days and does not know the names of medicines she takes. she was very lethargic and unable to move without assistance She has some edema with the leg. she has persistent Tachycardia She was to have an appointment with Carola Riggs MD neurologist outpatient prior to being readmitted. During the course of hospitalization she was evaluated by neurology also physical therapy evaluated her. Initial CT of the head was negative. MRI was u nable to be obtained due to implant. She also had a cervical spine imaging study which showed DJD mild in nature. We did have extensive discussion with the family the son in detail in detail and neurology recommendation that this is likely early stages of dementia. Her mental status is improved at this time and she is stable for discharge. I have also started her on Cymbalta as she does have pain in different pain points concerning for fibromyalgia have discussed with the son that if this is not helpful the primary care doctor can make changes. Patient was treated empirically for rhabdomyolysis due to prolonged time on the floor and also with IV Rocephin for presumed urinary tract infection. No evidence of sepsis was identified. While patient is still in house while awaiting placement. Patient will continue on current treatments no significant findings noted at this time. Patient stayed overnight due to placement issues and no acute distress noted. She did require an enema for constipation relief. (1) Acute encephalopathy secondary to dementia (2) Rhabdomyolysis (3) IDDM (insulin dependent diabetes mellitus) (4) HTN (hypertension) (5) Hyperkalemia (6) neck pain secondary to DJD (7) constipation Disposition: DC/[place]-03 SNF W [facility] CERT Time spent for discharge: 35 minutes Core Measure Documentation - Palliative Care Palliative Care/ Comfort Measures: Not Applicable - Core Measures Any of the following diagnoses?: none Exam - Physical Exam Narrative exam: VITAL SIGNS: Reviewed. GENERAL: The patient appears normally developed, obese vital signs as documented. HEAD: No signs of head trauma. EYES: Pupils are equal. Extraocular motions intact. EARS: Hearing grossly intact. MOUTH: Oropharynx is normal. NECK: No adenopathy, no JVD. CHEST: Chest with clear breath sounds bilaterally. No wheezes, rales, or rhonchi. CARDIAC: Regular rate and rhythm. S1 and S2, without murmurs, gallops, or rubs. VASCULAR: No Edema. Peripheral pulses normal and equal in all extremities. ABDOMEN: Soft, non tender and non distended. No rebound or guarding, and no masses palpated. Bowel Sounds normal. MUSCULOSKELETAL: Good range of motion of all major joints. Extremities without clubbing, cyanosis or edema. NEUROLOGIC EXAM: Alert and oriented x 3 No focal sensory or strength deficits. Speech normal. Follows commands. PSYCHIATRIC: Mood normal. SKIN: detail exam as documented in skin assessment - Constitutional Vitals: Temp Pulse Resp BP Pulse Ox 99.1 F 94 H 20 174/76 97 11/23/19 07:30 11/23/19 10:00 11/23/19 10:00 11/23/19 09:21 11/23/19 10:00 Plan Follow up with: SARAY GASTELUM MD [Staff Physician] - 7 Days BOWERS ROD CERVANTES MD [Referring] - 3-5 Days Prescriptions: Gabapentin 400 mg PO TID #30 capsule
[2019-11-23 13:10] VITALS: BP 155/73
== END 2019-11-23 18:55 | DRG 884 ==
LOC: ED 13:14 → OBSVTOIN 17:00 → 2B-ACE 17:00
PROVIDERS: ADMIT Internal Medicine; ATTEND Internal Medicine
DX: F03.90 Unspecified dementia, unspecified severity, without behavioral disturbance, psychotic disturbance, mood disturbance, and anxiety (principal); G93.40 Encephalopathy, unspecified; M62.82 Rhabdomyolysis; E87.1 Hypo-osmolality and hyponatremia; I10 Essential (primary) hypertension; E87.5 Hyperkalemia; E86.0 Dehydration; E11.40 Type 2 diabetes mellitus with diabetic neuropathy, unspecified; E11.65 Type 2 diabetes mellitus with hyperglycemia; R60.9 Edema, unspecified; R00.0 Tachycardia, unspecified; K59.00 Constipation, unspecified; M50.30 Other cervical disc degeneration, unspecified cervical region; Z87.440 Personal history of urinary (tract) infections; Z90.710 Acquired absence of both cervix and uterus; Z87.891 Personal history of nicotine dependence; Z82.49 Family history of ischemic heart disease and other diseases of the circulatory system; Z79.4 Long term (current) use of insulin
CPT/HCPCS: 36415; 70450; 72125; 80048; 80053; 80061; 81001; 82140; 82550; 82962; 83036; 85025; 85027; 87040; 96365; 96375; G0378; J0360; J0696; J1815; J1885; J2405; J3246; J7030